=== PATIENT | female | born 1980 | race Caucasian/White ===

== ENCOUNTER 2021-02-03 17:29 | Emergency (ER) | payer MEDICAID ==
[~2021-02-03] VITALS: Ht 165.1 cm; Wt 79.0 kg
[2021-02-03 17:36] VITALS: BP 112/78
== END 2021-02-03 21:27 | disposition left against medical advice (07) ==
LOC: ER 17:29
DX: R11.2 Nausea with vomiting, unspecified (principal); Z53.21 Procedure and treatment not carried out due to patient leaving prior to being seen by health care provider